=== PATIENT | female | born 1945 | race Two or more races ===

== ENCOUNTER → 2025-05-05 | Outpatient (CLI) | payer MEDICARE, MEDICAID, SELFPAY ==
--- NOTE | 2025-05-05 13:00 | XR_ITS ---
Examination: CT abdomen with intravenous contrast CT pelvis with intravenous contrast 2-D coronal reconstructions 2-D sagittal reconstructions Date and time of exam: May 05, 2025, 1445 hours INDICATIONS: Right-sided flank pain beginning 1 week ago., Diagnosis malignant neoplasm of kidney CTDI: vol (mGy) 24 DLP: (mGycm) 1497 Technique: Multiple axial sections of the abdomen and pelvis have been obtained. 64 slice high-resolution scanner used. 3 mm axial sections have been obtained, post intravenous injection 60 cc Isovue 370 2-D sagittal, coronal reconstructions obtained. Low dose protocols were performed. One or more of the following dose reduction techniques were used; automated exposure control, adjustment of the mA and/or KV according to patient size, use of iterative reconstruction technique. Findings: Mild enlargement cardiac contour Small pericardial effusion No visualized liver or splenic lesion No gallstones No pancreatic or adrenal mass Small kidneys with significant renal scarring No renal or ureteral calculi, no hydronephrosis No pericecal inflammatory change No bowel obstruction Abundant stool in the rectosigmoid Colonic diverticulosis Absent uterus No pelvic mass Contracted urinary bladder Severe osteopenia IMPRESSION: Renal scar formation No enhancing renal mass lesion depicted As clinically warranted, consider MRI kidneys pre and postcontrast follow-up
== END | disposition home or self-care (01) ==
LOC: SCAT 13:03
PROVIDERS: PCP Family Medicine; Referring Provider Family Medicine; Visit Provider Family Medicine
DX: N28.89 Other specified disorders of kidney and ureter (principal); C64.1 Malignant neoplasm of right kidney, except renal pelvis
CPT/HCPCS: 74177; A4649; Q9967